=== PATIENT | male | born 2000 | race Caucasian/White ===

== ENCOUNTER 2023-12-08 16:37 | Inpatient (IN) | payer OTHER ==
[~2023-12-08] VITALS: Ht 165.1 cm; Wt 60.3 kg
[2023-12-09 22:53] VITALS: BP 117/70; TEMP 98.5; O2SAT 96
[2023-12-10] MEDS ORDERED: MULT-1045 PO (01:17)
[2023-12-10] MEDS ORDERED: LIDO1ADH82 TD (01:17)
[2023-12-10] MEDS ORDERED: INSU100V42 SQ (01:17)
[2023-12-10] MEDS ORDERED: THIAMINE (01:17)
[2023-12-10] MEDS ORDERED: BACI500P4 TP (01:17)
[2023-12-10] MEDS ORDERED: DEXT50DI8 IVP (01:17)
[2023-12-10] MEDS ORDERED: HYDR1LIQ IVP (01:17)
[2023-12-10] MEDS ORDERED: DOXY100C5 PO (01:17)
[2023-12-10] MEDS ORDERED: MUPI15CR TP (01:17)
[2023-12-10] MEDS ORDERED: BACI1OIN8 TP (01:17)
[2023-12-10] MEDS ORDERED: SENN1TAB59 PO (01:17)
[2023-12-10] MEDS ORDERED: DIPH25TA25 PO (01:17)
[2023-12-10] MEDS ORDERED: OXYC10TA49 PO (01:17)
[2023-12-10] MEDS ORDERED: DOCU100C36 PO (01:17)
[2023-12-10] MEDS ORDERED: POLY250017 PO (01:17)
[2023-12-10] MEDS ORDERED: MAGN400O6 PO (01:17)
[2023-12-10] MEDS ORDERED: METH-807 PO (01:17)
[2023-12-10] MEDS ORDERED: BISA10SU61 RC ×2 (01:17)
[2023-12-10] MEDS ORDERED: ONDA4AMP IV (01:17)
[2023-12-10] MEDS ORDERED: OXYC5TAB3 PO (01:17)
[2023-12-10] MEDS ORDERED: MAGN500P40 PO (01:17)
[2023-12-10] MEDS ORDERED: REMEDY ESSENTIAL ZINC PASTE 113 GM TOP PRN (01:45)
[2023-12-10] MEDS: HYDROCODONE/APAP 5-325MG TABLET PO PRN (01:58)
[2023-12-10 06:16] VITALS: BP 113/73; TEMP 98.3; O2SAT 98
[2023-12-10] MEDS ORDERED: ACET325T53 PO (10:47)
[2023-12-10] MEDS ORDERED: MAFE56.7 TP (10:47)
[2023-12-10] MEDS ORDERED: THIA100T74 PO (10:52)
[2023-12-10] MEDS: ACETAMINOPHEN 325 MG TABLET PO PRN (12:14)
[2023-12-10] MEDS: diphenhydrAMINE 25 MG CAP PO PRN (12:14)
[2023-12-10 16:00] VITALS: BP 120/80; TEMP 98.2; O2SAT 100
== END 2023-12-10 18:35 | disposition home health service (06) | DRG 862 ==
PROVIDERS: ADMIT Physical Medicine & Rehabilitation Pain Medicine; ATTEND Physical Medicine & Rehabilitation Pain Medicine
DX: S06.6XAD Traumatic subarachnoid hemorrhage with loss of consciousness status unknown, subsequent encounter (principal); S01.01XD Laceration without foreign body of scalp, subsequent encounter; S08.12 Partial traumatic amputation of ear; S22.43XD Multiple fractures of ribs, bilateral, subsequent encounter for fracture with routine healing; S22.059D Unspecified fracture of T5-T6 vertebra, subsequent encounter for fracture with routine healing; S42.002D Fracture of unspecified part of left clavicle, subsequent encounter for fracture with routine healing; V48.9XXD Unspecified car occupant injured in noncollision transport accident in traffic accident, subsequent encounter
CPT/HCPCS: Q0163